=== PATIENT | female | born 1990 | race Caucasian/White ===

== ENCOUNTER → 2017-01-19 | Outpatient (CLI) | payer OTHER | END | disposition home or self-care (01) | LOC: LAB 11:01 | PROVIDERS: ATTEND Specialist | DX: E03.8 Other specified hypothyroidism (principal) | CPT/HCPCS: 84443 ==

== ENCOUNTER → 2017-08-06 | Outpatient (CLI) | payer OTHER ==
[2017-08-06 09:20] LABS: ALBUMIN 3.3 g/dL (3.4-5.0); ALBUMIN/GLOBULIN RATIO 0.8 (1.0-1.7); CALCIUM 8.3 mg/dL (8.5-10.1); CREATININE 0.7 mg/dL (0.6-1.0); GFR 99.6; POTASSIUM 4.3 mmol/L (3.5-5.1); TOTAL BILIRUBIN 0.2 mg/dL (0.2-1.0); TOTAL PROTEIN 7.5 g/dL (6.4-8.2)
[2017-08-06 13:47] LABS: BASO # 0.1 x10^3/uL (0.0-0.2); BASO % 1 % (0-3); EOS # 0.2 x10^3/uL (0.0-0.7); EOS % 2 % (0-3); HEMATOCRIT 40.5 % (36.0-47.0); HEMOGLOBIN 13.7 g/dL (12.0-15.5); LYMPH # 2.1 x10^3/uL (1.0-4.8); LYMPH % 19 % (24-48); MEAN CORPUSCULAR HEMOGLOBIN 29 pg (25-35); MEAN CORPUSCULAR HGB CONC 34 g/dL (31-37); MEAN CORPUSCULAR VOLUME 86 fL (79-100); MONO # 0.8 x10^3/uL (0.0-1.1); MONO % 7 % (0-9); NEUT # 7.8 x10^3uL (1.8-7.7); NEUT % 71 % (31-73); PLATELET COUNT 342 x10^3/uL (140-400); RED BLOOD COUNT 4.73 x10^6/uL (3.50-5.40); RED CELL DISTRIBUTION WIDTH 13.9 % (11.5-14.5)
[2017-08-06 14:18] LABS: FREE T4 1.03 ng/dL (0.76-1.46); THYROID STIM HORMONE (TSH) 3.565 uIU/mL (0.358-3.740)
[2017-08-06 19:09] LABS: DHEA SO4 116.4 ug/dL (84.8-378.0); FSH 6.9 mIU/mL (.); LUTEINIZING HORMONE 5.3 mIU/mL (.)
[2017-08-06 20:09] LABS: T3 TOTAL 145 ng/dL (71-180)
[2017-08-07 05:10] LABS: HEMOGLOBIN A1C 4.7 % (4.8-5.6)
[2017-08-07 17:08] LABS: INSULIN LEVEL 14.3 uIU/mL (2.6-24.9)
[2017-08-10 12:10] LABS: TESTOSTERONE FREE 0.44 ng/dL (0.10-0.85); TESTOSTERONE TOTAL 14 ng/dL (8-48)
== END | disposition home or self-care (01) ==
LOC: LAB 07:58
PROVIDERS: ATTEND Obstetrics & Gynecology
DX: N92.0 Excessive and frequent menstruation with regular cycle (principal); E03.9 Hypothyroidism, unspecified
CPT/HCPCS: 36415; 80053; 80061; 82627; 83001; 83002; 83036; 83525; 84146; 84402; 84403; 84439; 84443; 84480; 85025

== ENCOUNTER → 2017-08-06 | Outpatient (CLI) | payer OTHER ==
--- NOTE | 2017-08-06 17:21 | RAD ---
US PELVIS W/TV History: Menorrhagia, irregular menses Comparison: None. Findings: Multiple transabdominal sonographic images of the pelvis are submitted. Uterus measured 8.6 x 3.6 x 4.4 cm. Endometrium measured 1.2 cm. Left ovary measured 4.6 x 1.6 x 2.2 cm. Right ovary measured 3.2 x 2 x 3 cm. There is normal color flow of the ovaries bilaterally. Transvaginal ultrasound: Multiple transvaginal sonographic images of pelvis are submitted. Uterus measured 8.1 x 3.4 x 4.6 cm. Endometrium measured 0.4 cm. Neither ovary is visualized on this portion of exam. No free fluid is demonstrated. Impression: 1. No significant abnormality is demonstrated. Electronically signed by: He Aiken MD (08/06/2017 5:18 PM) [id number]
== END | disposition home or self-care (01) ==
LOC: US 12:49
PROVIDERS: ATTEND Obstetrics & Gynecology
DX: N92.0 Excessive and frequent menstruation with regular cycle (principal); E03.9 Hypothyroidism, unspecified
CPT/HCPCS: 76830; 76856